=== PATIENT | female | born 1950 | race Caucasian/White ===

== ENCOUNTER → 2019-08-02 | Outpatient (CLI) | payer BC, MEDICARE ==
--- NOTE | 2019-08-02 09:04 | XR ---
EXAMINATION TYPE: XR knee complete bilateral DATE OF EXAM: 08/02/2019 CLINICAL HISTORY: Chronic bilateral knee pain. TECHNIQUE: Three views of the bilateral knees are obtained including weightbearing frontal projectio n. COMPARISON: None. FINDINGS: There is genu varum positioning bilaterally. There is fairly symmetric advanced tricompart ment degenerative changes with spurring and narrowing present bilaterally. Overlying clothing materia l distal femoral level is present. IMPRESSION: As above.
== END | disposition home or self-care (01) ==
LOC: RADXRMAIN 08:32
PROVIDERS: ATTEND Orthopaedic Surgery
DX: M17.0 Bilateral primary osteoarthritis of knee (principal); M21.162 Varus deformity, not elsewhere classified, left knee; M21.161 Varus deformity, not elsewhere classified, right knee

== ENCOUNTER → 2019-08-02 | Outpatient (CLI) | payer MEDICARE | END | disposition home or self-care (01) | LOC: LABPAT 10:45 | PROVIDERS: ATTEND Orthopaedic Surgery | DX: Z01.812 Encounter for preprocedural laboratory examination (principal) | CPT/HCPCS: 87070 ==

== ENCOUNTER → 2025-04-20 | Outpatient (CLI) | payer MEDICARE ==
[2025-04-20 15:31] LABS: HCT 43.8 % (37.2-46.3); HGB 14.5 g/dL (12.0-15.0); MCH 29.2 pg (27.0-32.0); MCHC 33.1 g/dL (32.0-37.0); MCV 88.3 FL (80.0-97.0); NRBC Per 100 WBC 0 X 10*3/uL (0.00-0.01); Platelet Count 222 X 10*3/uL (140-440); RBC 4.96 X 10*6/uL (4.10-5.20); RDW 12.4 % (11.5-14.5); WBC 6.28 X 10*3/uL (4.50-10.00)
[2025-04-20 21:00] LABS: Anion Gap 13.10 mmol/L (4.00-12.00); Blood Urea Nitrogen 18.4 mg/dL (9.0-27.0); Carbon Dioxide 22.9 mmol/L (21.6-31.8); Chloride 101 mmol/L (96-109); Potassium 4.4 mmol/L (3.5-5.5); Sodium 137 mmol/L (135-145)
== END | disposition home or self-care (01) ==
LOC: LABPAT 11:49
PROVIDERS: ATTEND Internal Medicine
DX: Z01.812 Encounter for preprocedural laboratory examination (principal); R06.02 Shortness of breath
CPT/HCPCS: 80051; 82565; 84520; 85027

== ENCOUNTER 2025-04-24 11:14 | Day surgery (SDC) | payer MEDICARE ==
[2025-04-19 13:56] VITALS: BMI 36.8
[2025-04-24] MEDS: SODIUM CHLORIDE 0.9% 1,000 ML IV ONE ×2 (10:59→13:02)
[2025-04-24] MEDS: HEPARIN SODIUM,PORCINE (1 ML) 2,500 UNIT in SODIUM CHLORIDE 0.9% 250 ML IRRIGATION PRN (11:00)
[2025-04-24] MEDS: HEPARIN SODIUM,PORCINE 10,000 UNIT in SODIUM CHLORIDE 0.9% 1,000 ML IRRIGATION PRN (11:00)
[2025-04-24] MEDS: fentaNYL (PF) 50 MCG/1 ML VIAL IVP ONE (11:01)
[2025-04-24] MEDS: MIDAZOLAM 2 MG/2 ML VIAL IVP ONE ×2 (11:01→13:14)
[2025-04-24] MEDS: LIDOCAINE 1% INJ 10MG/ML (20 ML MDV) SQ ONE ×2 (11:03→13:13)
[2025-04-24] MEDS: VERAPAMIL SYRINGE (5 MG/10 ML) INTRAARTER ONE ×2 (11:06→13:15)
[2025-04-24] MEDS: HEPARIN SODIUM 1,000 UN/ML (10ML VL) IVP ONE ×3 (11:13→13:25)
[~2025-04-24 11:14] MED LIST: ALPRAZolam 0.25 MG TAB PO PRN; ALPRAZolam 0.5 MG TAB PO PRN; NITROGLYCERIN SL TABS 0.4 MG TAB SUBLINGUAL PRN
[2025-04-24] MEDS: IOPAMIDOL-370 100ML BTL INJ ONE ×2 (11:17→13:48)
[2025-04-24] MEDS: IV FLUID CONTINUATION 1,000 ML IV ONE (11:41)
[2025-04-24] MEDS: ASPIRIN 325 MG TAB PO STA (11:44)
[2025-04-24] MEDS: SODIUM CHLORIDE 0.9% 1,000 ML in EMPTY BAG 1 BAG IV SCH (11:44)
[2025-04-24 11:49] VITALS: RESP 16; TEMP 97.9
[2025-04-24] MEDS: fentaNYL (PF) 50 MCG/ML 2 ML AMP IVP ONE (13:14)
--- NOTE | 2025-04-24 16:00 | P.CARDCATH ---
Description of Procedure: PROCEDURES PERFORMED: Left heart catheterization, bilateral coronary angiography, ultrasound guided arterial access, RFR (iFR LAD, circumflex, RCA) INDICATION: Abnormal stress test CONSENT:I have discussed the risks, benefits and alternative therapies for the above-mentioned procedure and for both sedation/analgesia as well as necessary blood product administration, if indicated, as they pertain to this patient. The patient has indicated understanding and acceptance of the risks and procedures discussed. PROCEDURE: After the risks, benefits and alternatives of the above mentioned procedure explained in detail with the patient, informed consent was obtained. Patient was taken to the catheterization lab and prepped and draped in usual fashion. Ultrasound guidance was used to assess for arterial access. 1% lidocaine was used to anesthetize the right radial artery. A 6-Thai sheath was placed in the right radial artery using modified Seldinger technique and ultrasound guidance. Left coronary angiography was performed with a 5-Thai JL 3.5 catheter and right coronary angiography was performed with a 5-Thai FR5 catheter in various views. A 5-Thai FR5 catheter was inserted into the left ventricle and pressure measurements were obtained. The decision was made to perform functional assessment of the RCA, circumflex and LAD. Heparin had been given. Using the FL 3.5 catheter, a 0.014 pressure wire was advanced into the left main and normalized. It was then advanced into the distal LAD. Initially there was significant drift and therefore this was repeated and was mildly abnormal at 0.88. Pullback showed gradual increase across the entire area. Next the pressure wire was advanced into the circumflex and IFR was performed and was normal at 0.93. Next using a 6 Thai AL 0.75 guide, IFR was performed of the RCA and was 0.97. The right radial sheath was removed and a TR band was placed with hemostasis achieved. The patient tolerated the procedure well. Patient was transported back to the post catheterization holding area in stable condition. Conscious Sedation: Patient was monitored under the direct supervision of myself for conscious sedation using Versed and fentanyl for a total duration of 37 minutes HEMODYNAMICS: Aorta: 128/72 LV: 125/10, LVEDP 25 SELECTIVE CORONARY ARTERIOGRAPHY: LEFT MAIN: The left main is a large caliber vessel which bifurcates into the LAD and circumflex. There is mild 20% stenosis. LEFT ANTERIOR DESCENDING CORONARY ARTERY: LAD is a large caliber vessel which wraps around to the apex. There is diffuse disease with some calcification. There is a moderate caliber diagonal 1 branch and just distal to this there is a 50 to 60% LAD lesion. The mid to distal LAD has diffuse disease with somewhat more focal 60 to 70% stenosis LEFT CIRCUMFLEX CORONARY ARTERY: Left circumflex is a moderate caliber vessel with in the ostial 60 to 70% stenosis. RIGHT CORONARY ARTERY: The right coronary artery is a large caliber vessel which gives off a PDA and PLV branch and is the dominant vessel. There is a 50 to 60% proximal to mid RCA stenosis which appears calcified. Otherwise there is mild 20 to 30% stenosis and PDA has a proximal 60 to 70% stenosis and a mid PDA 70% stenosis. FINAL IMPRESSION: 1. Multivessel CAD as described above including tandem mid LAD 50 to 60%, mid to distal LAD 60 to 70%, 60 to 70% circumflex, 50 to 60% RCA, PDA 70% stenosis 2. Mildly elevated left sided filling pressures 3. IFR normal of circumflex and RCA, mildly abnormal of the LAD PLAN: 1. Aggressive risk factor modification per most recent ACC/AHA guidelines. 2. Circumflex and RCA appear nonischemic. May have some ischemia of the PDA however smaller caliber vessel. LAD is ischemic however long segment. Additionally would likely require stenting over the diagonal branch. Attempt medical therapy without obvious angina type symptoms.
[2025-04-24 17:05] VITALS: BP 139/59; PULSE 57
== END 2025-04-24 17:09 | disposition home or self-care (01) ==
LOC: CATHCVL 11:14
PROVIDERS: ATTEND Internal Medicine
DX: I25.10 Atherosclerotic heart disease of native coronary artery without angina pectoris (principal); I10 Essential (primary) hypertension; E78.5 Hyperlipidemia, unspecified; I48.91 Unspecified atrial fibrillation; G47.33 Obstructive sleep apnea (adult) (pediatric)
CPT/HCPCS: 93458; 93571; J2250; J1644 ×3; J2003; J3010; Q9967